=== PATIENT | female | born 1995 | race Caucasian/White ===

== ENCOUNTER 2016-11-12 15:39 | Emergency (ER) | payer OTHER ==
[2016-11-12 15:40] VITALS: BMI 23.6
[2016-11-12 16:04] VITALS: BP 136/87; PULSE 86; RESP 18; TEMP 98; O2SAT 99
--- NOTE | 2016-11-12 16:16 | ED PDOC ---
HPI: Female Pain Time Seen by Provider: 11/12/16 15:51 Chief Complaint (Nursing): Female Genitourinary Chief Complaint (Provider): Vaginal bleeding History Per: Patient History/Exam Limitations: no limitations Onset/Duration Of Symptoms: Persistent (6 weeks) Current Symptoms Are (Timing): Still Present Severity: Moderate Quality Of Discomfort: "Pain" Alleviating Factors: None Additional History Per: Patient Additional Complaint(s): The patient is a 21yo female, PMHx of , presents to the ED for evaluation of abnormal vaginal bleeding for the past 6 weeks. Pt reports she had an IUD placed 3 years ago while in the [place]. Pt reports she uses 1 sanitary napkin per day and reports associated intermittent lower abdominal cramping. She denies any shortness of breath, light headedness. She denies any other medical complaints. PMD: none provided Past Medical History Reviewed: Historical Data, Nursing Documentation, Vital Signs Vital Signs: Last Vital Signs Temp 98.0 F 11/12/16 15:46 Pulse 86 11/12/16 15:46 Resp 18 11/12/16 15:46 BP 136/87 11/12/16 15:46 Pulse Ox 99 11/12/16 15:46 - Medical History PMH: No Chronic Diseases - Surgical History Surgical History: - Family History Family History: States: Diabetes - Living Arrangements Living Arrangements: With Family - Social History Current smoker - smoking cessation education provided: No Alcohol: None Drugs: Denies - Immunization History Hx Tetanus Toxoid Vaccination: Yes Hx Influenza Vaccination: Yes Hx Pneumococcal Vaccination: No - Home Medications Home Medications: Ambulatory Orders Medication Instructions Recorded Cephalexin [Keflex] 1 tab PO QID #28 cap 12/10/14 Ferrous Sulfate [Feosol] 324 mg PO TID #15 ect 11/12/16 - Allergies Allergies/Adverse Reactions: Allergies Allergy/AdvReac Type Severity Reaction Status Date / Time No Known Allergies Allergy Verified 10/08/13 15:51 Review of Systems ROS Statement: Except As Marked, All Systems Reviewed And Found Negative Gastrointestinal: Positive for: Abdominal Pain Genitourinary Female: Positive for: Vaginal Bleeding Physical Exam - Reviewed Nursing Documentation Reviewed: Yes Vital Signs Reviewed: Yes - Physical Exam Appears: Positive for: Well, Non-toxic, No Acute Distress Head Exam: Positive for: ATRAUMATIC, NORMAL INSPECTION, NORMOCEPHALIC Skin: Positive for: Normal Color Eye Exam: Positive for: Normal appearance Neck: Positive for: Normal Cardiovascular/Chest: Positive for: Regular Rate, Rhythm Respiratory: Positive for: Normal Breath Sounds. Negative for: Respiratory Distress Gastrointestinal/Abdominal: Positive for: Normal Exam, Soft. Negative for: Tenderness Pelvic Exam: Positive for: No Cerv. Motion Tender, Blood (minimal blood in vaginal vault). Negative for: Lesions, Tender Adnexa Back: Positive for: Normal Inspection Neurologic/Psych: Positive for: Alert, Oriented - Laboratory Results Result Diagrams: 11/12/16 15:15 11/12/16 15:15 - ECG O2 Sat by Pulse Oximetry: 99 (RA) Pulse Ox Interpretation: Normal Medical Decision Making Medical Decision Making: Time: 1615 Impression: Menorrhagia Plan: -- Type and screen -- CMP -- CBC -- US Transvaginal -- Pelvic exam with Nurse Radha as outside installer apprentice --Reassess Scribe Attestation: Documented by Maryan Clemente acting as a scribe for Liana Sosa MD. Provider Attestation: All medical record entries made by the Scribe were at my direction and personally dictated by me. I have reviewed the chart and agree that the record accurately reflects my personal performance of the history, physical exam, medical decision making, and the department course for this patient. I have also personally directed, reviewed, and agree with the discharge instructions and disposition. Disposition - Clinical Impression Clinical Impression: Abnormal vaginal bleeding - Disposition Referrals: [facility] [Outside] Disposition: Routine/Home Disposition Time: 17:45 Condition: GOOD Prescriptions: Ferrous Sulfate [Feosol] 324 mg PO TID #15 ect Instructions: Dysfunctional Uterine Bleeding (ED)
[2016-11-12 16:48] LABS: BASO # 0.1 K/uL (0.0-0.2); BASO % 0.9 % (0.0-2.0); EOS # 0.2 K/uL (0.0-0.7); EOS % 1.7 % (0.0-4.0); HEMATOCRIT 34.2 % (34.0-47.0); LYMPH # 3.1 K/uL (1.0-4.3); LYMPH % 25.8 % (20.0-40.0); MEAN CELL VOLUME 77.9 fl (81.0-99.0); MEAN CORPUSCULAR HEMOGLOBIN 23.9 pg (27.0-31.0); MEAN CORPUSCULAR HGB CONC 30.7 g/dL (33.0-37.0); MEAN PLATELET VOLUME 9.2 fl (7.2-11.7); MONO # 0.9 K/uL (0.0-0.8); MONO % 7.8 % (0.0-10.0); NEUT # 7.7 K/uL (1.8-7.0); NEUT % 63.8 % (50.0-75.0); NRBC % 0.1 % (0.0-0.0); RED CELL DISTRIBUTION WIDTH 15.8 % (11.5-14.5)
[2016-11-12 16:49] LABS: PARTIAL THROMBOPLASTIN TIME 25.9 SECONDS (23.3-32.5)
[2016-11-12 16:55] LABS: ALB/GLOB RATIO 1.2 (1.0-2.1); ALKALINE PHOSPHATASE 68 U/L (38-126); ALT/SGPT 20 U/L (9-52); AST/SGOT 26 U/L (14-36); BILIRUBIN,TOTAL 0.3 mg/dl (0.2-1.3); BLOOD UREA NITROGEN 16 mg/dl (7-17); CALCIUM 9.5 mg/dL (8.4-10.2); CARBON DIOXIDE 25 mmol/L (22-30); CHLORIDE 103 mmol/L (98-107); GFR AFRICAN-AMERICAN > 60; GLUCOSE,RANDOM 82 mg/dL (65-105); POTASSIUM 4.4 MMOL/L (3.6-5.0); SODIUM 143 mmol/l (132-148); TOTAL PROTEIN 8.1 G/DL (6.3-8.2)
--- NOTE | 2016-11-12 17:02 | US ---
HISTORY: Lower abd pain, vaginal bleeding COMPARISON: None available. TECHNIQUE: Transvaginal pelvic ultrasound FINDINGS: UTERUS: Measures 6.4 x 3.9 x 4.2 cm. Anteverted. ENDOMETRIUM: Measures 8 mm in diameter. IUD appears in place within the endometrial cavity. CERVIX: No cervical abnormality identified. RIGHT OVARY: Measures 3.1 x 1.8 x 2.6 cm. Blood flow is demonstrated. Follicles. LEFT OVARY: Measures 2.2 x 1.7 x 2.6 cm. Blood flow is demonstrated. Follicles. FREE FLUID: No significant free fluid noted. OTHER FINDINGS: None. IMPRESSION: IUD.
== END 2016-11-12 18:16 | disposition home or self-care (01) ==
LOC: H.ER 15:39
DX: N93.9 Abnormal uterine and vaginal bleeding, unspecified (principal); N92.0 Excessive and frequent menstruation with regular cycle; R10.9 Unspecified abdominal pain